=== PATIENT | female | born 1975 | race Caucasian/White ===

== ENCOUNTER 2017-09-11 16:10 | Emergency (ER) | payer BC ==
[~2017-09-11] VITALS: Ht 170.2 cm; Wt 119.3 kg
[2017-09-11 16:33] VITALS: BP_SYST 158
== END 2017-09-11 18:49 | disposition left against medical advice (07) ==
LOC: SED 16:10
DX: M54.2 Cervicalgia (principal); Z53.21 Procedure and treatment not carried out due to patient leaving prior to being seen by health care provider